=== PATIENT | male | born 1995 | race Caucasian/White ===

== ENCOUNTER 2016-07-25 02:39 | Emergency (ER) | payer OTHER ==
[2016-07-25] MEDS ORDERED: ZOFRAN INJ 4 MG VIAL ONE ×2 (02:44→03:17)
[2016-07-25] MEDS: ZOFRAN INJ 4 MG VIAL IVP ONE ×2 (02:45→02:46)
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
[2016-07-25 02:49] VITALS: BP 166/111; BMI 33.0
[2016-07-25] MEDS ORDERED: ZOFRAN INJ 4 MG VIAL IVP ONE (03:18)
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
[2016-07-25] MEDS ORDERED: TORADOL 30 MG VIAL IVP ONE (03:53)
[2016-07-25] MEDS ORDERED: TORADOL 30 MG VIAL ONE (03:54)
== END 2016-07-25 04:10 | disposition home or self-care (01) ==
LOC: ER 02:39
DX: S29.019A Strain of muscle and tendon of unspecified wall of thorax, initial encounter (principal); M54.5 Low back pain; V87.7XXA Person injured in collision between other specified motor vehicles (traffic), initial encounter; R51 Headache
CPT/HCPCS: 70450; 72125; 72128; 96365; 96374; 96375; 99283; J1885; J2405